=== PATIENT | female | born 1995 | race Caucasian/White ===

== ENCOUNTER 2020-10-29 12:09 | Emergency (ER) | payer OTHER ==
[~2020-10-29] VITALS: Ht 162.6 cm; Wt 54.5 kg
[2020-10-29 13:46] VITALS: BP 108/60
== END 2020-10-29 14:04 | disposition home or self-care (01) ==
LOC: EMS 12:18
DX: Z03.89 Encounter for observation for other suspected diseases and conditions ruled out (principal); J45.909 Unspecified asthma, uncomplicated
CPT/HCPCS: 71046; 99283